=== PATIENT | female | born 1990 | race Caucasian/White ===

== ENCOUNTER 2019-04-11 19:17 | Emergency (ER) | payer MEDICAID ==
[~2019-04-11] VITALS: Ht 152.4 cm; Wt 52.0 kg
[~2019-04-11 19:17] MED LIST: BACI28.34 TOP; CEPH-443 PO; NAPR-985 PO
[2019-04-11 19:22] VITALS: Ht 152.4 cm; Wt 52.0 kg
[2019-04-11] MEDS ORDERED: SILVER SULFADIAZINE 1% 25 GM CR TOP ONE (20:30)
[2019-04-11] MEDS ORDERED: IBUPROFEN 600 MG TAB PO ONE (20:30)
[2019-04-11] MEDS ORDERED: LORAZEPAM 1 MG TAB PO ONE (20:30)
== END 2019-04-11 20:44 | disposition home or self-care (01) ==
LOC: FTE 19:17
DX: T25.221A Burn of second degree of right foot, initial encounter (principal); T20.20XA Burn of second degree of head, face, and neck, unspecified site, initial encounter; T21.21XA Burn of second degree of chest wall, initial encounter; X10.1XXA Contact with hot food, initial encounter; Y92.9 Unspecified place or not applicable
CPT/HCPCS: 16000; Z7502; Z7610